=== PATIENT | male | born 1995 | race Caucasian/White ===

== ENCOUNTER 2019-04-22 14:48 | Emergency (ER) | payer BC, SELFPAY ==
[~2019-04-22] VITALS: Ht 185.4 cm; Wt 76.4 kg
--- NOTE | 2019-04-22 15:24 | REP ---
Left knee five views : There is no fracture or dislocation. Mineralization and joint spaces are normal. There are no calcifications or foreign bodies. Impression: Negative left knee . Electronically Signed by Angel Jensen MD 04/22/2019 03:14 P
[2019-04-22 16:43] VITALS: BP 150/74
== END 2019-04-22 16:53 | disposition home or self-care (01) ==
LOC: M ED 14:48
DX: S50.812A Abrasion of left forearm, initial encounter (principal); S83.92XA Sprain of unspecified site of left knee, initial encounter; X58.XXXA Exposure to other specified factors, initial encounter; Y92.9 Unspecified place or not applicable; Y93.9 Activity, unspecified; Y99.9 Unspecified external cause status; Z72.0 Tobacco use; F12.10 Cannabis abuse, uncomplicated; Z88.0 Allergy status to penicillin

== ENCOUNTER 2023-07-09 11:27 | Emergency (ER) | payer SELFPAY ==
[~2023-07-09] VITALS: Ht 185.4 cm; Wt 84.9 kg
[2023-07-09 11:30] VITALS: TEMP 97.9
[2023-07-09 12:42] LABS: BASO # 0.1 10^3/uL (0.0-0.2); BASO % 2.1 % (0.0-1.0); EOS # 0.2 10^3/uL (0.0-0.5); HEMATOCRIT 39.5 % (42.0-52.0); HEMOGLOBIN 13.8 g/dl (13.5-17.5); LYMPH % 29.8 % (24.0-44.0); MEAN CORPUSCULAR HEMOGLOBIN 32.3 pg (27.0-33.0); MEAN CORPUSCULAR HGB CONC 34.9 g/dl (32.0-36.5); MEAN CORPUSCULAR VOLUME 92.5 fl (80.0-96.0); MONO # 1.1 10^3/uL (0.0-0.8); MONO % 16.3 % (2.0-8.0); NEUTROPHILS # 3.2 10^3/uL (1.5-8.5); NEUTROPHILS % 48.2 % (36.0-66.0); RED BLOOD COUNT 4.27 10^6/uL (4.30-6.10); WHITE BLOOD COUNT 6.6 10^3/uL (4.0-10.0)
[2023-07-09 12:43] LABS: PLATELET COUNT, AUTOMATED 40 10^3/uL (150-450)
[2023-07-09 12:52] LABS: INR 1.46; PROTHROMBIN TIME 17.3 SECONDS (12.5-14.5)
[2023-07-09 12:53] LABS: PARTIAL THROMBOPLASTIN TIME 35.2 SECONDS (24.8-34.2)
[2023-07-09 13:12] LABS: CK-MB VALUE MASS 5.6 NG/ML (<3.6)
[2023-07-09 13:13] LABS: LIPASE 98 U/L (12-53)
[2023-07-09 13:13] LABS: RSV AMPLIFICATION NEGATIVE (NEGATIVE)
[2023-07-09 13:14] LABS: THYROID STIMULATING HORMONE 2.682 uIU/ML (0.55-4.78)
[2023-07-09 13:16] LABS: ALBUMIN 2.8 G/DL (3.2-5.2); ALKALINE PHOSPHATASE 310 U/L (46-116); ALT/SGPT 67 U/L (7.0-40); AST/SGOT 312 U/L (<34); BILIRUBIN,DIRECT 1.9 MG/DL (<0.4); BILIRUBIN,TOTAL 2.8 MG/DL (0.3-1.2); BLOOD UREA NITROGEN 6 MG/DL (9-23); CALCIUM LEVEL 7.8 MG/DL (8.5-10.1); CARBON DIOXIDE LEVEL 28 MMOL/L (20-31); CHLORIDE LEVEL 109 MMOL/L (98-107); CREATININE FOR GFR 0.59 MG/DL (0.70-1.30); GLOMERULAR FILTRATION RATE > 60.0 (>60); GLUCOSE, FASTING 110 MG/DL (60-100); POTASSIUM SERUM 3.7 MMOL/L (3.5-5.1); SODIUM LEVEL 146 MMOL/L (136-145); TOTAL PROTEIN 7.8 G/DL (5.7-8.2)
[2023-07-09 13:17] LABS: FREE T4 1.25 NG/DL (0.89-1.76)
[2023-07-09 13:24] LABS: ERYTHROCYTE SEDIMENTATION RATE 72 mm/hr (0-15)
[2023-07-09 13:48] LABS: HEPATITIS B CORE ANTIBODY IGM NEGATIVE (NEGATIVE)
[2023-07-09 13:56] LABS: CPK CREATINE PHOSPHOKINASE 465 U/L (46-171); ETHYL ALCOHOL (ETHANOL) 0.355 % (0.000-0.010); HEPATITIS C VIRUS ABY INDEX > 11.00 INDEX (<0.8)
[2023-07-09 14:06] LABS: AMPHETAMINES LEVEL URINE NEGATIVE (NEGATIVE); BARBITURATES URINE NEGATIVE (NEGATIVE); BENZODIAZEPINES URINE NEGATIVE (NEGATIVE); COCAINE METABOLITE URINE NEGATIVE (NEGATIVE); METHADONE URINE NEGATIVE (NEGATIVE); OPIATES URINE NEGATIVE (NEGATIVE); PHENCYCLIDINE URINE NEGATIVE (NEGATIVE)
[2023-07-09 14:15] LABS: CANNABINOIDS URINE POSITIVE (NEGATIVE)
[2023-07-09] MEDS ORDERED: LASI40TA9 PO (16:13)
[2023-07-09] MEDS ORDERED: SPIR-10 PO (16:13)
[2023-07-09] MEDS ORDERED: THIA100TA PO (16:13)
[2023-07-09] MEDS ORDERED: FUROSEMIDE 40 MG TAB PO ONE (16:15)
[2023-07-09] MEDS ORDERED: THIAMINE 100 MG TAB PO ONE (16:15)
[2023-07-09] MEDS ORDERED: SPIRONOLACTONE 25 MG TAB PO ONE (16:15)
[2023-07-09 16:30] VITALS: BP 129/86; O2SAT 98
[2023-07-12 13:07] LABS: ANTINUCLEAR ANTIBODIES DIRECT Negative (Negative)
== END 2023-07-09 16:53 | disposition home or self-care (01) ==
LOC: M ED 11:27
DX: K70.10 Alcoholic hepatitis without ascites (principal); F10.188 Alcohol abuse with other alcohol-induced disorder; K74.60 Unspecified cirrhosis of liver; F17.210 Nicotine dependence, cigarettes, uncomplicated; Z88.0 Allergy status to penicillin; Z79.899 Other long term (current) drug therapy

== ENCOUNTER 2023-10-08 14:29 | Inpatient (IN) | payer OTHER, SELFPAY ==
[~2023-10-08] VITALS: Ht 185.4 cm; Wt 83.6 kg
[~2023-10-08 14:29] MED LIST: LASI40TA9 PO; SPIR-10 PO; THIA100TA PO
[2023-10-08 15:16] LABS: BASO # 0.1 10^3/uL (0.0-0.2); BASO % 1.1 % (0.0-1.0); EOS # 0.1 10^3/uL (0.0-0.5); EOS % 0.7 % (0.0-3.0); HEMATOCRIT 31.6 % (42.0-52.0); HEMOGLOBIN 11.6 g/dl (13.5-17.5); LYMPH % 22.4 % (24.0-44.0); MEAN CORPUSCULAR HEMOGLOBIN 35.3 pg (27.0-33.0); MEAN CORPUSCULAR HGB CONC 36.7 g/dl (32.0-36.5); MONO # 1.3 10^3/uL (0.0-0.8); MONO % 14.5 % (2.0-8.0); NEUTROPHILS # 5.4 10^3/uL (1.5-8.5); NEUTROPHILS % 60.4 % (36.0-66.0); RED BLOOD COUNT 3.29 10^6/uL (4.30-6.10)
[2023-10-08 15:30] LABS: ETHYL ALCOHOL (ETHANOL) 0.026 % (0.000-0.010); LIPASE 48 U/L (12-53)
[2023-10-08 15:36] LABS: ALBUMIN 2.1 G/DL (3.2-5.2); ALKALINE PHOSPHATASE 211 U/L (46-116); ALT/SGPT 68 U/L (7.0-40); AST/SGOT 263 U/L (<34); BILIRUBIN,DIRECT 8.2 MG/DL (<0.4); BILIRUBIN,TOTAL 15.6 MG/DL (0.3-1.2); BLOOD UREA NITROGEN 6 MG/DL (9-23); CALCIUM LEVEL 8.4 MG/DL (8.5-10.1); CARBON DIOXIDE LEVEL 26 MMOL/L (20-31); CHLORIDE LEVEL 99 MMOL/L (98-107); CREATININE FOR GFR 0.53 MG/DL (0.70-1.30); GLOMERULAR FILTRATION RATE > 60.0 (>60); GLUCOSE, FASTING 96 MG/DL (60-100); MAGNESIUM LEVEL 1.5 MG/DL (1.8-2.4); PHOSPHORUS LEVEL 2.6 MG/DL (2.5-4.9); POTASSIUM SERUM 3.3 MMOL/L (3.5-5.1); SODIUM LEVEL 137 MMOL/L (136-145); TOTAL PROTEIN 8.3 G/DL (5.7-8.2)
[2023-10-08 15:40] LABS: PLATELET COUNT, AUTOMATED 46 10^3/uL (150-450)
[2023-10-08 15:48] LABS: INR 2.58; PROTHROMBIN TIME 26.7 SECONDS (12.5-14.5)
[2023-10-08 15:49] LABS: PARTIAL THROMBOPLASTIN TIME 48.8 SECONDS (24.8-34.2)
[2023-10-08] MEDS ORDERED: ISOVUE-370 76% 100ML VIAL As Ordered ONE (15:54)
[2023-10-08 15:59] LABS: VENOUS BASE EXCESS 0.5 (-2.0-2.0); VENOUS HCO3 24.7 MMOL/L (23.0-27.0); VENOUS O2 SATURATION 86.3 % (60.0-80.0); VENOUS PARTIAL PRESSURE CO2 38.2 mmHg (38.0-50.0); VENOUS PARTIAL PRESSURE O2 50.7 mmHg (30.0-50.0); VENOUS PH 7.429 UNITS (7.330-7.430); VENOUS STANDARD HCO3 24.7 MMOL/L; VENOUS TOTAL CO2 25.9 MMOL/L (24.0-28.0)
[2023-10-08] MEDS ORDERED: cefTRIAXone SOD 2 GM in D5W MINI-BAG PLUS 50 ML IV ONE (18:35)
[2023-10-08 19:39] LABS: SOURCE, BODY FLUID PERITONEAL
[2023-10-08] MEDS ORDERED: HOME MED LIST COMPLETE! XX SCH (19:40)
[2023-10-08 19:41] LABS: APPEARANCE, BODY FLUID HAZY (CLEAR); PERITONEAL FL COLOR AMBER (COLORLESS)
[2023-10-08 19:58] LABS: SOURCE, BODY FLUID ALBUMIN PERITONEAL
[2023-10-08 20:03] LABS: SOURCE, BODY FLUID GLUCOSE PERITONEAL
[2023-10-08 20:05] LABS: SOURCE, BODY FLUID TOT PROTEIN PERITONEAL; TOTAL PROTEIN, BODY FLUID < 2.0 G/DL (NOT ESTABLISHED)
[2023-10-08] MEDS: THIAMINE 100 MG TAB PO SCH (21:02)
[2023-10-08] MEDS: LORazepam 2 MG TAB PO PRN (21:02)
[2023-10-09] VITALS (10 sets, daily range): BP systolic 100–133; BP diastolic 57–81; TEMP 97.8–98.9; O2SAT 90–100
[2023-10-09] MEDS: LORazepam 2 MG TAB PO PRN (00:54)
[2023-10-09] MEDS ORDERED: LORazepam 2 MG/ML 1ML VIAL IV STA (03:36)
[2023-10-09] MEDS ORDERED: ALBUTEROL SULFATE 2.5MG/0.5ML INH NEB SOLN INH PRN (04:40)
[2023-10-09] MEDS ORDERED: LORazepam 2 MG TAB PO PRN (04:40)
[2023-10-09] MEDS ORDERED: methylPREDNISolone 125MG 2ML VIAL IV SCH (05:25)
[2023-10-09 06:44] LABS: HEMATOCRIT 32.3 % (42.0-52.0); HEMOGLOBIN 11.5 g/dl (13.5-17.5); MEAN CORPUSCULAR HEMOGLOBIN 35.1 pg (27.0-33.0); MEAN CORPUSCULAR HGB CONC 35.6 g/dl (32.0-36.5); MEAN CORPUSCULAR VOLUME 98.5 fl (80.0-96.0); RED BLOOD COUNT 3.28 10^6/uL (4.30-6.10); WHITE BLOOD COUNT 8.5 10^3/uL (4.0-10.0)
[2023-10-09 06:52] LABS: PLATELET COUNT, AUTOMATED 40 10^3/uL (150-450)
[2023-10-09 07:16] LABS: ALBUMIN 1.8 G/DL (3.2-5.2); ALKALINE PHOSPHATASE 176 U/L (46-116); ALT/SGPT 65 U/L (7.0-40); AST/SGOT 250 U/L (<34); BILIRUBIN,TOTAL 15.9 MG/DL (0.3-1.2); BLOOD UREA NITROGEN 9 MG/DL (9-23); CALCIUM LEVEL 7.8 MG/DL (8.5-10.1); CARBON DIOXIDE LEVEL 26 MMOL/L (20-31); CHLORIDE LEVEL 98 MMOL/L (98-107); CREATININE FOR GFR 0.56 MG/DL (0.70-1.30); GLOMERULAR FILTRATION RATE > 60.0 (>60); GLUCOSE, FASTING 101 MG/DL (60-100); MAGNESIUM LEVEL 1.6 MG/DL (1.8-2.4); POTASSIUM SERUM 4.7 MMOL/L (3.5-5.1); SODIUM LEVEL 132 MMOL/L (136-145); TOTAL PROTEIN 7.6 G/DL (5.7-8.2)
[2023-10-09] MEDS ORDERED: POTASSIUM PHOSPHATE INJ 20 MMOL in D5W 250 ML IV ONE (08:00)
[2023-10-09 08:18] LABS: INR 3.07; PROTHROMBIN TIME 30.5 SECONDS (12.5-14.5)
[2023-10-09] MEDS: LACTULOSE 20GM/30ML SYRUP UDC PO SCH ×4 (08:55→23:00)
[2023-10-09] MEDS: THIAMINE 100 MG TAB PO SCH ×2 (09:27→21:01)
[2023-10-09] MEDS: FOLIC ACID 1MG TAB PO SCH (09:27)
[2023-10-09] MEDS: MULTIVITAMINS/MINERALS THERAP 1 TAB PO SCH (09:27)
[2023-10-09] MEDS: FUROSEMIDE 20MG/2ML VIAL IV SCH (09:27)
[2023-10-09] MEDS: PANTOPRAZOLE 40MG VIAL IV SCH ×2 (09:27→21:00)
[2023-10-09] MEDS: SPIRONOLACTONE 25 MG TAB PO SCH ×2 (09:27→16:13)
[2023-10-09] MEDS ORDERED: MIDODRINE 5 MG TAB PO PRN (09:55)
[2023-10-09] MEDS ORDERED: OCTREOTIDE ACETATE 100MCG/ML VIAL **IV ADMINISTRATION ONLY IV ONE (10:00)
[2023-10-09] MEDS ORDERED: MIDAZOLAM INJ 2MG/2ML VIAL As Ordered ONE (10:20)
[2023-10-09] MEDS ORDERED: propofoL 200 MG/20 ML VIAL As Ordered ONE ×2 (10:20→11:20)
[2023-10-09] MEDS ORDERED: fentaNYL 100 MCG/2 ML INJECTION As Ordered ONE (10:20)
[2023-10-09] MEDS ORDERED: LIDOCAINE 2% 100MG/5ML SDV (FOR ANES.) As Ordered ONE (10:20)
[2023-10-09] MEDS: OCTREOTIDE ACETATE 1,200 MCG in NS 238.8 ML IV SCH (10:37)
[2023-10-09] MEDS ORDERED: ROCURONIUM BROMIDE 50MG/5ML VIAL As Ordered ONE (10:47)
[2023-10-09] MEDS: MAG SULF 1GM/100ML (MAG RUN) 1 GM in IV 1 EA IV SCH ×2 (15:06→16:13)
[2023-10-09] MEDS: PENTOXIFYLLINE 400MG TAB PO SCH ×2 (16:13→21:01)
[2023-10-09] MEDS: cefTRIAXone SOD 1 GM in D5W MINI-BAG PLUS 50 ML IV SCH (21:00)
[2023-10-09] MEDS: rifAXIMin 550 MG TAB (XIFAXAN) PO SCH (21:00)
[2023-10-10] VITALS (7 sets, daily range): BP systolic 102–146; BP diastolic 53–70; TEMP 97.6–98.4; O2SAT 91–97
[2023-10-10] MEDS: LACTULOSE 20GM/30ML SYRUP UDC PO SCH ×4 (03:00→22:17)
[2023-10-10 07:32] LABS: BASO % 0.1 % (0.0-1.0); HEMATOCRIT 27.2 % (42.0-52.0); HEMOGLOBIN 9.8 g/dl (13.5-17.5); LYMPH # 0.9 10^3/uL (1.5-5.0); LYMPH % 8.4 % (24.0-44.0); MEAN CORPUSCULAR VOLUME 97.1 fl (80.0-96.0); MONO # 1.5 10^3/uL (0.0-0.8); MONO % 14.2 % (2.0-8.0); NEUTROPHILS # 8.1 10^3/uL (1.5-8.5); NEUTROPHILS % 76.2 % (36.0-66.0); WHITE BLOOD COUNT 10.6 10^3/uL (4.0-10.0)
[2023-10-10 07:35] LABS: PLATELET COUNT, AUTOMATED 42 10^3/uL (150-450)
[2023-10-10 07:44] LABS: INR 2.88; PROTHROMBIN TIME 29.1 SECONDS (12.5-14.5)
[2023-10-10 08:10] LABS: ALBUMIN 1.7 G/DL (3.2-5.2); ALKALINE PHOSPHATASE 158 U/L (46-116); ALT/SGPT 48 U/L (7.0-40); AST/SGOT 170 U/L (<34); BILIRUBIN,TOTAL 12.6 MG/DL (0.3-1.2); BLOOD UREA NITROGEN 7 MG/DL (9-23); CALCIUM LEVEL 7.5 MG/DL (8.5-10.1); CARBON DIOXIDE LEVEL 31 MMOL/L (20-31); CHLORIDE LEVEL 98 MMOL/L (98-107); GLOMERULAR FILTRATION RATE > 60.0 (>60); GLUCOSE, FASTING 121 MG/DL (60-100); MAGNESIUM LEVEL 1.7 MG/DL (1.8-2.4); POTASSIUM SERUM 3.3 MMOL/L (3.5-5.1); SODIUM LEVEL 133 MMOL/L (136-145); TOTAL PROTEIN 6.8 G/DL (5.7-8.2)
[2023-10-10] MEDS: PANTOPRAZOLE 40MG VIAL IV SCH ×2 (08:27→21:19)
[2023-10-10] MEDS: rifAXIMin 550 MG TAB (XIFAXAN) PO SCH ×2 (08:28→21:19)
[2023-10-10] MEDS: FOLIC ACID 1MG TAB PO SCH (08:28)
[2023-10-10] MEDS: MULTIVITAMINS/MINERALS THERAP 1 TAB PO SCH (08:28)
[2023-10-10] MEDS: PENTOXIFYLLINE 400MG TAB PO SCH ×3 (08:28→21:18)
[2023-10-10] MEDS: THIAMINE 100 MG TAB PO SCH ×2 (08:28→22:17)
[2023-10-10] MEDS: SPIRONOLACTONE 25 MG TAB PO SCH ×2 (08:46→17:33)
[2023-10-10] MEDS: FUROSEMIDE 20MG/2ML VIAL IV SCH ×2 (08:47→17:33)
[2023-10-10] MEDS: OCTREOTIDE ACETATE 1,200 MCG in NS 238.8 ML IV SCH (09:41)
[2023-10-10] MEDS: MAG SULF 1GM/100ML (MAG RUN) 2 GM in IV 1 EA IV SCH ×2 (09:41→11:24)
[2023-10-10] MEDS ORDERED: POTASSIUM CHLORIDE 10MEQ SR TABLET PO ONE (10:00)
[2023-10-10] MEDS: MIDODRINE 5 MG TAB PO SCH ×2 (11:24→15:35)
[2023-10-10] MEDS: cefTRIAXone SOD 1 GM in D5W MINI-BAG PLUS 50 ML IV SCH (18:19)
[2023-10-11 05:34] VITALS: BP 106/58; TEMP 98.2; O2SAT 93
[2023-10-11] MEDS: LACTULOSE 20GM/30ML SYRUP UDC PO SCH ×3 (06:15→22:00)
[2023-10-11 06:39] LABS: BASO % 0.1 % (0.0-1.0); EOS # 0.1 10^3/uL (0.0-0.5); EOS % 0.5 % (0.0-3.0); HEMATOCRIT 28.8 % (42.0-52.0); HEMOGLOBIN 10.3 g/dl (13.5-17.5); LYMPH # 1.3 10^3/uL (1.5-5.0); LYMPH % 13.3 % (24.0-44.0); MEAN CORPUSCULAR HGB CONC 35.8 g/dl (32.0-36.5); MONO # 1.5 10^3/uL (0.0-0.8); MONO % 14.8 % (2.0-8.0); NEUTROPHILS % 69.5 % (36.0-66.0); RED BLOOD COUNT 2.94 10^6/uL (4.30-6.10); WHITE BLOOD COUNT 10.1 10^3/uL (4.0-10.0)
[2023-10-11 06:52] LABS: PLATELET COUNT, AUTOMATED 44 10^3/uL (150-450)
[2023-10-11 07:00] LABS: INR 3.01; PROTHROMBIN TIME 30.1 SECONDS (12.5-14.5)
[2023-10-11 07:05] LABS: ALBUMIN 1.6 G/DL (3.2-5.2); ALKALINE PHOSPHATASE 160 U/L (46-116); ALT/SGPT 51 U/L (7.0-40); AST/SGOT 176 U/L (<34); BLOOD UREA NITROGEN 5 MG/DL (9-23); CALCIUM LEVEL 7.8 MG/DL (8.5-10.1); CARBON DIOXIDE LEVEL 31 MMOL/L (20-31); CHLORIDE LEVEL 98 MMOL/L (98-107); CREATININE FOR GFR 0.56 MG/DL (0.70-1.30); GLOMERULAR FILTRATION RATE > 60.0 (>60); GLUCOSE, FASTING 84 MG/DL (60-100); POTASSIUM SERUM 3.4 MMOL/L (3.5-5.1); SODIUM LEVEL 133 MMOL/L (136-145); TOTAL PROTEIN 6.7 G/DL (5.7-8.2)
[2023-10-11 08:02] VITALS: BP 113/54; TEMP 98.3; O2SAT 94
[2023-10-11 08:11] LABS: MAGNESIUM LEVEL 1.8 MG/DL (1.8-2.4)
[2023-10-11] MEDS: MIDODRINE 5 MG TAB PO SCH ×3 (08:52→17:00)
[2023-10-11] MEDS: rifAXIMin 550 MG TAB (XIFAXAN) PO SCH ×2 (08:52→20:14)
[2023-10-11] MEDS: PENTOXIFYLLINE 400MG TAB PO SCH ×3 (08:52→20:14)
[2023-10-11] MEDS: OCTREOTIDE ACETATE 1,200 MCG in NS 238.8 ML IV SCH ×2 (08:53→09:08)
[2023-10-11] MEDS: MULTIVITAMINS/MINERALS THERAP 1 TAB PO SCH (08:53)
[2023-10-11] MEDS: FOLIC ACID 1MG TAB PO SCH (08:53)
[2023-10-11] MEDS: PANTOPRAZOLE 40MG VIAL IV SCH ×2 (08:53→20:13)
[2023-10-11] MEDS: THIAMINE 100 MG TAB PO SCH (08:53)
[2023-10-11] MEDS: FUROSEMIDE 20MG/2ML VIAL IV SCH ×2 (08:54→17:00)
[2023-10-11] MEDS ORDERED: POTASSIUM CHLORIDE 10MEQ SR TABLET PO ONE (09:00)
[2023-10-11] MEDS: SPIRONOLACTONE 50 MG TAB PO SCH ×2 (09:08→17:00)
[2023-10-11 11:52] VITALS: BP 122/57; TEMP 98.7; O2SAT 90
[2023-10-11] MEDS: MAGNESIUM OXIDE 400MG TAB (MAG-OX) PO SCH ×2 (13:14→20:14)
[2023-10-11 15:57] VITALS: BP 118/64; TEMP 98; O2SAT 99
[2023-10-11] MEDS: cefTRIAXone SOD 1 GM in D5W MINI-BAG PLUS 50 ML IV SCH (18:51)
[2023-10-11 19:14] VITALS: BP 115/57; TEMP 97.8; O2SAT 95
[2023-10-11 23:42] VITALS: BP 99/55; TEMP 98.8; O2SAT 90
[2023-10-12 03:37] VITALS: BP 108/57; TEMP 98.8; O2SAT 95
[2023-10-12] MEDS: LACTULOSE 20GM/30ML SYRUP UDC PO SCH ×2 (06:00→15:02)
[2023-10-12 06:27] LABS: BASO % 0.4 % (0.0-1.0); EOS # 0.1 10^3/uL (0.0-0.5); EOS % 1.3 % (0.0-3.0); HEMATOCRIT 29.6 % (42.0-52.0); HEMOGLOBIN 10.5 g/dl (13.5-17.5); LYMPH # 1.7 10^3/uL (1.5-5.0); LYMPH % 16.7 % (24.0-44.0); MEAN CORPUSCULAR HEMOGLOBIN 35.1 pg (27.0-33.0); MEAN CORPUSCULAR HGB CONC 35.5 g/dl (32.0-36.5); NEUTROPHILS % 61.3 % (36.0-66.0); RED BLOOD COUNT 2.99 10^6/uL (4.30-6.10); WHITE BLOOD COUNT 9.9 10^3/uL (4.0-10.0)
[2023-10-12 06:34] LABS: INR 3.06; PROTHROMBIN TIME 30.5 SECONDS (12.5-14.5)
[2023-10-12 06:47] LABS: ALBUMIN 1.6 G/DL (3.2-5.2); ALKALINE PHOSPHATASE 153 U/L (46-116); ALT/SGPT 49 U/L (7.0-40); AST/SGOT 145 U/L (<34); BILIRUBIN,TOTAL 11.2 MG/DL (0.3-1.2); BLOOD UREA NITROGEN 6 MG/DL (9-23); CALCIUM LEVEL 7.5 MG/DL (8.5-10.1); CARBON DIOXIDE LEVEL 28 MMOL/L (20-31); CHLORIDE LEVEL 102 MMOL/L (98-107); CREATININE FOR GFR 0.61 MG/DL (0.70-1.30); GLOMERULAR FILTRATION RATE > 60.0 (>60); GLUCOSE, FASTING 75 MG/DL (60-100); MAGNESIUM LEVEL 1.7 MG/DL (1.8-2.4); POTASSIUM SERUM 3.4 MMOL/L (3.5-5.1); SODIUM LEVEL 136 MMOL/L (136-145); TOTAL PROTEIN 6.5 G/DL (5.7-8.2)
[2023-10-12 06:57] LABS: MONO # 1.8 10^3/uL (0.0-0.8)
[2023-10-12 06:58] LABS: PLATELET COUNT, AUTOMATED 44 10^3/uL (150-450)
[2023-10-12] MEDS ORDERED: PENT400T23 PO ×2 (07:18→11:51)
[2023-10-12 07:44] VITALS: BP 93/51; TEMP 97.3; O2SAT 92
[2023-10-12] MEDS ORDERED: POTASSIUM CHLORIDE 10MEQ SR TABLET PO ONE (09:00)
[2023-10-12] MEDS ORDERED: PANTOPRAZOLE 40MG TAB (PROTONIX) PO SCH (09:00)
[2023-10-12] MEDS ORDERED: FUROSEMIDE 40 MG TAB PO SCH (09:00)
[2023-10-12] MEDS: rifAXIMin 550 MG TAB (XIFAXAN) PO SCH (09:10)
[2023-10-12] MEDS: FOLIC ACID 1MG TAB PO SCH (09:11)
[2023-10-12] MEDS: MULTIVITAMINS/MINERALS THERAP 1 TAB PO SCH (09:11)
[2023-10-12] MEDS: PENTOXIFYLLINE 400MG TAB PO SCH (09:11)
[2023-10-12] MEDS: SPIRONOLACTONE 50 MG TAB PO SCH (09:11)
[2023-10-12] MEDS: MAGNESIUM OXIDE 400MG TAB (MAG-OX) PO SCH (09:12)
[2023-10-12] MEDS: MIDODRINE 5 MG TAB PO SCH ×2 (09:12→12:56)
[2023-10-12 10:08] VITALS: BP 117/65
[2023-10-12] MEDS ORDERED: FOLI1TAB11 PO (11:51)
[2023-10-12] MEDS ORDERED: FURO40TA2 PO (11:51)
[2023-10-12] MEDS ORDERED: MAGN400T2 PO (11:51)
[2023-10-12] MEDS ORDERED: MIDO5TA PO (11:51)
[2023-10-12] MEDS ORDERED: POTA-151 PO (11:51)
[2023-10-12] MEDS ORDERED: ALDA50TA2 PO (11:51)
[2023-10-12] MEDS ORDERED: PANT40TA29 PO (11:51)
[2023-10-12] MEDS ORDERED: THIA100T7 PO (11:51)
[2023-10-12] MEDS ORDERED: CIPR500T39 PO (11:51)
[2023-10-12] MEDS ORDERED: LACT10SO3 PO (11:51)
[2023-10-12 12:00] VITALS: BP_SYST 108; BP_SYST 117; BP_DIAS 57; BP_DIAS 65; TEMP 96.6; O2SAT 91
[2023-10-12] MEDS ORDERED: CIPROFLOXACIN 500MG TABLET PO SCH (18:00)
[2023-10-13] MEDS ORDERED: FUROSEMIDE 40 MG TAB PO SCH (09:00)
== END 2023-10-12 16:04 | disposition home or self-care (01) | DRG 264 ==
LOC: EDBD 14:29 → M ED 14:29 → M ED INP 10-09 04:36 → M PCU 10-09 13:22
PROVIDERS: ADMIT Internal Medicine; ATTEND Internal Medicine
PROC: 0W9G3ZX Drainage of Peritoneal Cavity, Percutaneous Approach, Diagnostic (ICD-10-PCS; 2023-10-08)
PROC: 0W3P8ZZ Control Bleeding in Gastrointestinal Tract, Via Natural or Artificial Opening Endoscopic (ICD-10-PCS; 2023-10-09)
PROC: 30233K1 Transfusion of Nonautologous Frozen Plasma into Peripheral Vein, Percutaneous Approach (ICD-10-PCS; principal; 2023-10-09 10:01)
DX: K75.9 Inflammatory liver disease, unspecified (principal); I85.11 Secondary esophageal varices with bleeding; K92.0 Hematemesis; D69.6 Thrombocytopenia, unspecified; K70.11 Alcoholic hepatitis with ascites; K70.31 Alcoholic cirrhosis of liver with ascites; K76.82 Hepatic encephalopathy; F10.20 Alcohol dependence, uncomplicated; K31.89 Other diseases of stomach and duodenum; Z88.0 Allergy status to penicillin; Z20.822 Contact with and (suspected) exposure to COVID-19

== ENCOUNTER 2023-11-29 09:03 | Inpatient (IN) | payer MEDICAID, OTHER ==
[2023-11-29] VITALS (77 sets, daily range): BP systolic 69–141; BP diastolic 21–55; TEMP 91.9–99; O2SAT 84–96
[~2023-11-29] VITALS: Ht 185.4 cm; Wt 100.7 kg
[~2023-11-29 09:03] MED LIST changes: +ALDA50TA2 PO; +CIPR500T39 PO; +FOLI1TAB11 PO; +FOLIC ACID 1MG TAB PO SCH; +FURO40TA2 PO; +LACT10SO3 PO; +LACTULOSE 20GM/30ML SYRUP UDC PO SCH; +MAGN400T2 PO; +MIDO5TA PO; +MULTIVITAMINS/MINERALS THERAP 1 TAB PO SCH; +PANT40TA29 PO; +PENT400T23 PO; +POTA-151 PO; +THIA100T7 PO; +THIAMINE 100 MG TAB PO SCH
[2023-11-29] MEDS ORDERED: NS 1,000 ML IV ONE (09:10)
[2023-11-29] MEDS ORDERED: LORazepam 2 MG TAB PO PRN ×2 (09:10→12:05)
[2023-11-29] MEDS ORDERED: DEXTROSE 50% 50ML SYRINGE As Ordered ONE (09:20)
[2023-11-29] MEDS ORDERED: THIAMINE 200MG 2ML VIAL IV ONE (09:25)
[2023-11-29] MEDS ORDERED: cefTRIAXone SOD 2 GM in D5W MINI-BAG PLUS 50 ML IV ONE (09:25)
[2023-11-29] MEDS ORDERED: DEXTROSE 50% 50ML SYRINGE IV STA (09:30)
[2023-11-29 09:45] LABS: ABG BASE EXCESS -10.4 (-2.0-2.0); ABG HCO3 15.4 MMOL/L (22.0-26.0); ABG O2 SATURATION 87.4 % (95.0-99.0); ABG PARTIAL PRESSURE CO2 33.3 mmHg (35.0-45.0); ABG PARTIAL PRESSURE O2 66.5 mmHg (75.0-100.0); ABG STANDARD HCO3 15.9 MMOL/L. (22.0-26.0); ABG TOTAL CO2 16.4 MMOL/L (22.0-29.0); ABG pH (ARTERIAL) 7.282 UNITS (7.350-7.450)
[2023-11-29 10:08] LABS: BASO % 0.3 % (0.0-1.0); EOS % 0.3 % (0.0-3.0); HEMATOCRIT 22.1 % (42.0-52.0); HEMOGLOBIN 8.2 g/dl (13.5-17.5); LYMPH # 0.5 10^3/uL (1.5-5.0); LYMPH % 4.9 % (24.0-44.0); MEAN CORPUSCULAR HEMOGLOBIN 34.9 pg (27.0-33.0); MONO # 1.5 10^3/uL (0.0-0.8); MONO % 13.4 % (2.0-8.0); NEUTROPHILS # 8.3 10^3/uL (1.5-8.5); NEUTROPHILS % 76.4 % (36.0-66.0); RED BLOOD COUNT 2.35 10^6/uL (4.30-6.10); WHITE BLOOD COUNT 10.9 10^3/uL (4.0-10.0)
[2023-11-29 10:10] LABS: INR 3.99; PROTHROMBIN TIME 37.4 SECONDS (12.5-14.5)
[2023-11-29 10:14] LABS: PLATELET COUNT, AUTOMATED 48 10^3/uL (150-450)
[2023-11-29 10:15] LABS: MEAN CORPUSCULAR HGB CONC 37.1 g/dl (32.0-36.5)
[2023-11-29 10:26] LABS: CPK CREATINE PHOSPHOKINASE 237 U/L (46-171)
[2023-11-29 10:28] LABS: THYROID STIMULATING HORMONE 0.895 uIU/ML (0.55-4.78)
[2023-11-29] MEDS ORDERED: MED REC IN PROGRESS XX SCH (10:30)
[2023-11-29] MEDS ORDERED: NS 2,810 ML in IV 1 EA IV ONE (10:30)
[2023-11-29] MEDS ORDERED: NOREPINEPHRINE 4MG IN D5 250ML 4 MG in IV 1 EA IV SCH ×2 (10:35)
[2023-11-29 10:49] LABS: ALBUMIN 1.6 G/DL (3.2-5.2); ALKALINE PHOSPHATASE 192 U/L (46-116); ALT/SGPT 94 U/L (7.0-40); AST/SGOT 370 U/L (<34); BILIRUBIN,DIRECT 7.3 MG/DL (<0.4); BLOOD UREA NITROGEN 19 MG/DL (9-23); CALCIUM LEVEL 7.4 MG/DL (8.5-10.1); CARBON DIOXIDE LEVEL 18 MMOL/L (20-31); CHLORIDE LEVEL 82 MMOL/L (98-107); CREATININE FOR GFR 1.69 MG/DL (0.70-1.30); GLOMERULAR FILTRATION RATE 52.1 (>60); GLUCOSE, FASTING 47 MG/DL (60-100); POTASSIUM SERUM 4.8 MMOL/L (3.5-5.1); SALICYLATE LEVEL < 3.0 MG/DL (<30); SODIUM LEVEL 116 MMOL/L (136-145); TOTAL PROTEIN 6.1 G/DL (5.7-8.2)
[2023-11-29] MEDS ORDERED: PANTOPRAZOLE 40MG VIAL IV ONE (10:55)
[2023-11-29 10:57] LABS: ETHYL ALCOHOL (ETHANOL) 0.357 % (0.000-0.010)
[2023-11-29] MEDS ORDERED: ALBUTEROL SULFATE 2.5MG/0.5ML INH NEB SOLN NEB PRN (11:35)
[2023-11-29 11:55] LABS: ACETONE/KETONE 0.12 MMOL/L (0.02-0.27)
[2023-11-29 12:10] LABS: LIPASE 44 U/L (12-53)
[2023-11-29 12:11] LABS: MAGNESIUM LEVEL 2.2 MG/DL (1.8-2.4); PHOSPHORUS LEVEL 5.9 MG/DL (2.5-4.9)
[2023-11-29] MEDS ORDERED: fentaNYL 100 MCG/2 ML INJECTION IV PRN (13:55)
[2023-11-29] MEDS ORDERED: fentaNYL CITRATE/NaCl 1,000 MCG in IV 1 EA IV SCH (13:55)
[2023-11-29] MEDS ORDERED: MIDAZOLAM INJ 2MG/2ML VIAL IV PRN (13:55)
[2023-11-29] MEDS ORDERED: SUCCINYLCHOLINE INJ 200MG/10ML VIAL IV STA (14:08)
[2023-11-29] MEDS ORDERED: ETOMIDATE INJ 20MG/10ML VIAL IV STA (14:08)
[2023-11-29] MEDS: MIDAZOLAM 100MG/100ML-0.9%NACL 100 MG in IV 1 EA IV SCH (14:26)
[2023-11-29] MEDS: SODIUM BICARBONATE 150 MEQ in D5W 1,000 ML IV SCH (14:32)
[2023-11-29] MEDS: MEROPENEM INJ 1 GM in IV 1 EA IV SCH ×2 (14:32→23:04)
[2023-11-29] MEDS: HYDROCORTISONE 100MG/2ML VIAL IV SCH ×2 (14:41→20:58)
[2023-11-29] MEDS ORDERED: fentaNYL CITRATE 1,000 MCG in NS 80 ML IV SCH (14:44)
[2023-11-29] MEDS: fentaNYL CITRATE 1,000 MCG in NS 80 ML IV SCH (15:03)
[2023-11-29 15:36] LABS: ABG BASE EXCESS -14.5 (-2.0-2.0); ABG HCO3 11.5 MMOL/L (22.0-26.0); ABG O2 SATURATION 98.3 % (95.0-99.0); ABG PARTIAL PRESSURE CO2 27.6 mmHg (35.0-45.0); ABG PARTIAL PRESSURE O2 123.9 mmHg (75.0-100.0); ABG STANDARD HCO3 13.1 MMOL/L. (22.0-26.0); ABG TOTAL CO2 12.4 MMOL/L (22.0-29.0)
[2023-11-29] MEDS ORDERED: MED REC CURRENTLY UNOBTAINABLE XX SCH (15:40)
[2023-11-29 15:44] LABS: ABG pH (ARTERIAL) 7.238 UNITS (7.350-7.450)
[2023-11-29] MEDS ORDERED: VANCOMYCIN HCL 1,000 MG, VIAL MATE ADAPTER 1 EACH in D5W 250 ML IV ONE (16:00)
[2023-11-29] MEDS ORDERED: LACT20EL PO (16:12)
[2023-11-29] MEDS ORDERED: FOLI1TAB11 PO (16:13)
[2023-11-29] MEDS ORDERED: PENT400T22 PO (16:16)
[2023-11-29] MEDS ORDERED: SPIR50TA4 PO (16:16)
[2023-11-29] MEDS ORDERED: PANT40TA29 PO (16:17)
[2023-11-29] MEDS ORDERED: MIDO5TA PO (16:24)
[2023-11-29] MEDS ORDERED: FURO40TA2 PO (16:25)
[2023-11-29] MEDS ORDERED: THIA100T7 PO (16:26)
[2023-11-29] MEDS ORDERED: MAGN400T2 PO (16:27)
[2023-11-29] MEDS ORDERED: MED REC COMMENT (16:28)
[2023-11-29] MEDS ORDERED: HOME MED LIST COMPLETE! XX SCH (16:30)
[2023-11-29] MEDS: NOREPINEPHRINE 4MG IN D5 250ML 4 MG in IV 1 EA IV SCH ×8 (16:33→23:15)
[2023-11-29] MEDS: VASOPRESSIN INJ 20 UNITS in NS 499 ML IV SCH (16:34)
[2023-11-29 16:40] LABS: AMPHETAMINES LEVEL URINE NEGATIVE (NEGATIVE); BARBITURATES URINE NEGATIVE (NEGATIVE); BENZODIAZEPINES URINE NEGATIVE (NEGATIVE); COCAINE METABOLITE URINE NEGATIVE (NEGATIVE); METHADONE URINE NEGATIVE (NEGATIVE); OPIATES URINE NEGATIVE (NEGATIVE); PHENCYCLIDINE URINE NEGATIVE (NEGATIVE)
[2023-11-29 16:42] LABS: CANNABINOIDS URINE POSITIVE (NEGATIVE)
[2023-11-29] MEDS ORDERED: HEPARIN 1,000UNITS/ML 10ML VIAL (FOR RADIOLOGY & DIALYSIS ONLY) IV PRN (16:55)
[2023-11-29] MEDS: MIDODRINE 5 MG TAB PO SCH (17:07)
[2023-11-29 17:23] LABS: ALBUMIN 1.6 G/DL (3.2-5.2); BILIRUBIN,TOTAL 10.2 MG/DL (0.3-1.2); CALCIUM LEVEL 6.5 MG/DL (8.5-10.1); CREATININE FOR GFR 1.6 MG/DL (0.70-1.30); GLOMERULAR FILTRATION RATE 55.5 (>60); MAGNESIUM LEVEL 2.1 MG/DL (1.8-2.4); POTASSIUM SERUM 4.5 MMOL/L (3.5-5.1); TOTAL PROTEIN 5.5 G/DL (5.7-8.2)
[2023-11-29] MEDS: PHENYLEPHRINE HCL INJ 50 MG in D5W 495 ML IV SCH ×2 (17:44→23:55)
[2023-11-29 17:47] LABS: HEMOGLOBIN 7.3 g/dl (13.5-17.5); MEAN CORPUSCULAR HEMOGLOBIN 34.4 pg (27.0-33.0); MEAN CORPUSCULAR HGB CONC 36.3 g/dl (32.0-36.5); MEAN CORPUSCULAR VOLUME 94.8 fl (80.0-96.0); RED BLOOD COUNT 2.12 10^6/uL (4.30-6.10); WHITE BLOOD COUNT 11.3 10^3/uL (4.0-10.0)
[2023-11-29 17:50] LABS: HEMATOCRIT 20.1 % (42.0-52.0); PLATELET COUNT, AUTOMATED 38 10^3/uL (150-450)
[2023-11-29] MEDS ORDERED: PENTOXIFYLLINE 400MG TAB PO SCH (18:00)
[2023-11-29] MEDS ORDERED: SODIUM CHLORIDE 3% 500 ML IV STA (18:15)
[2023-11-29] MEDS ORDERED: OCTREOTIDE ACETATE 100MCG/ML VIAL **IV ADMINISTRATION ONLY IV ONE (18:30)
[2023-11-29] MEDS: OCTREOTIDE ACETATE 1,200 MCG in NS 238.8 ML IV SCH (18:49)
[2023-11-29 20:11] LABS: MEAN CORPUSCULAR HGB CONC 35.8 g/dl (32.0-36.5); WHITE BLOOD COUNT 10.1 10^3/uL (4.0-10.0)
[2023-11-29 20:18] LABS: HEMOGLOBIN 6.8 g/dl (13.5-17.5); PLATELET COUNT, AUTOMATED 43 10^3/uL (150-450)
[2023-11-29] MEDS: PANTOPRAZOLE 40MG VIAL IV SCH (20:58)
[2023-11-29 21:00] LABS: ALBUMIN 1.4 G/DL (3.2-5.2); BILIRUBIN,TOTAL 9.5 MG/DL (0.3-1.2); CALCIUM LEVEL 5.9 MG/DL (8.5-10.1); CREATININE FOR GFR 1.76 MG/DL (0.70-1.30); GLOMERULAR FILTRATION RATE 49.7 (>60); PHOSPHORUS LEVEL 6.9 MG/DL (2.5-4.9); POTASSIUM SERUM 4.9 MMOL/L (3.5-5.1); TOTAL PROTEIN 4.5 G/DL (5.7-8.2)
[2023-11-29] MEDS: VANCOMYCIN HCL 1,000 MG, VIAL MATE ADAPTER 1 EACH in D5W 250 ML IV SCH (21:27)
[2023-11-30] VITALS (89 sets, daily range): BP systolic 79–158; BP diastolic 16–59; TEMP 95.7–99.3; O2SAT 85–98
[2023-11-30] MEDS: PHENYLEPHRINE HCL INJ 50 MG in D5W 495 ML IV SCH ×5 (00:10→15:41)
[2023-11-30] MEDS: VASOPRESSIN INJ 20 UNITS in NS 499 ML IV SCH ×3 (00:11→15:25)
[2023-11-30] MEDS: NOREPINEPHRINE 4MG IN D5 250ML 4 MG in IV 1 EA IV SCH ×16 (01:28→16:33)
[2023-11-30] MEDS: HYDROCORTISONE 100MG/2ML VIAL IV SCH ×3 (02:33→15:30)
[2023-11-30 04:37] LABS: MEAN CORPUSCULAR HEMOGLOBIN 33.3 pg (27.0-33.0); MEAN CORPUSCULAR HGB CONC 36.1 g/dl (32.0-36.5); MEAN CORPUSCULAR VOLUME 92.3 fl (80.0-96.0); RED BLOOD COUNT 1.95 10^6/uL (4.30-6.10)
[2023-11-30 04:44] LABS: HEMOGLOBIN 6.5 g/dl (13.5-17.5); PLATELET COUNT, AUTOMATED 39 10^3/uL (150-450)
[2023-11-30 05:40] LABS: ALBUMIN 1.5 G/DL (3.2-5.2); BILIRUBIN,TOTAL 8.9 MG/DL (0.3-1.2); CALCIUM LEVEL 5.6 MG/DL (8.5-10.1); CREATININE FOR GFR 2.14 MG/DL (0.70-1.30); GLOMERULAR FILTRATION RATE 39.7 (>60); TOTAL PROTEIN 3.9 G/DL (5.7-8.2)
[2023-11-30] MEDS: SODIUM BICARBONATE 150 MEQ in D5W 1,000 ML IV SCH (05:46)
[2023-11-30] MEDS: MEROPENEM INJ 1 GM in IV 1 EA IV SCH ×2 (06:02→15:31)
[2023-11-30] MEDS ORDERED: NS 1,000 ML IV ONE (06:15)
[2023-11-30] MEDS ORDERED: SODIUM CHLORIDE 3% 100 ML IV STA (06:17)
[2023-11-30 06:48] LABS: ABG BASE EXCESS -9.7 (-2.0-2.0); ABG HCO3 15.9 MMOL/L (22.0-26.0); ABG O2 SATURATION 98.1 % (95.0-99.0); ABG PARTIAL PRESSURE CO2 33.5 mmHg (35.0-45.0); ABG PARTIAL PRESSURE O2 122.4 mmHg (75.0-100.0); ABG STANDARD HCO3 16.5 MMOL/L. (22.0-26.0); ABG pH (ARTERIAL) 7.295 UNITS (7.350-7.450)
[2023-11-30] MEDS: fentaNYL CITRATE 1,000 MCG in NS 80 ML IV SCH (06:50)
[2023-11-30] MEDS ORDERED: CALCIUM GLUCONATE 1,000 MG in D5W MINI-BAG PLUS 100 ML IV ONE (08:00)
[2023-11-30] MEDS: MIDODRINE 5 MG TAB PO SCH ×2 (08:00→08:18)
[2023-11-30] MEDS ORDERED: cefTRIAXone SOD 2 GM in D5W MINI-BAG PLUS 50 ML IV SCH (09:00)
[2023-11-30] MEDS ORDERED: MULTIVITAMINS/MINERALS THERAP 1 TAB PO SCH (09:00)
[2023-11-30] MEDS ORDERED: MAG SULF 1GM/100ML (MAG RUN) 1 GM in IV 1 EA IV ONE (09:00)
[2023-11-30] MEDS: PANTOPRAZOLE 40MG VIAL IV SCH (09:12)
[2023-11-30] MEDS: MIDAZOLAM 100MG/100ML-0.9%NACL 100 MG in IV 1 EA IV SCH (10:04)
[2023-11-30] MEDS: VANCOMYCIN HCL 1,000 MG, VIAL MATE ADAPTER 1 EACH in D5W 250 ML IV SCH (10:04)
[2023-11-30] MEDS ORDERED: HEPARIN 1,000UNITS/ML 10ML VIAL (FOR RADIOLOGY & DIALYSIS ONLY) IV PRN (10:15)
[2023-11-30] MEDS ORDERED: SODIUM CHLORIDE 0.9% INJ 10 ML SYR IV PRN (10:15)
[2023-11-30] MEDS ORDERED: INSULIN LISPRO (NovoLOG) PER UNIT SC SCH (12:00)
[2023-11-30] MEDS ORDERED: GLUCOSE 4GM CHEW TABLET PO PRN (12:05)
[2023-11-30] MEDS ORDERED: DEXTROSE 50% 50ML SYRINGE IV PRN (12:05)
[2023-11-30] MEDS ORDERED: GLUCAGON INJ 1MG VIAL SC PRN (12:05)
[2023-11-30] MEDS ORDERED: NOREPINEPHRINE 4MG IN D5 250ML 4 MG in IV 1 EA IV SCH ×2 (13:59)
[2023-11-30] MEDS ORDERED: PHENYLEPHRINE HCL INJ 50 MG in D5W 495 ML IV SCH (13:59)
[2023-11-30 15:12] LABS: IONIZED CALCIUM 3.3 MG/DL (4.5-5.3)
[2023-11-30 15:21] LABS: ABG BASE EXCESS -6.8 (-2.0-2.0); ABG HCO3 19.1 MMOL/L (22.0-26.0); ABG O2 SATURATION 97.4 % (95.0-99.0); ABG PARTIAL PRESSURE CO2 39.8 mmHg (35.0-45.0); ABG PARTIAL PRESSURE O2 106.4 mmHg (75.0-100.0); ABG STANDARD HCO3 18.8 MMOL/L. (22.0-26.0); ABG TOTAL CO2 20.3 MMOL/L (22.0-29.0); ABG pH (ARTERIAL) 7.298 UNITS (7.350-7.450)
[2023-11-30 15:22] LABS: MEAN CORPUSCULAR HEMOGLOBIN 30.5 pg (27.0-33.0); MEAN CORPUSCULAR HGB CONC 35.9 g/dl (32.0-36.5); RED BLOOD COUNT 1.67 10^6/uL (4.30-6.10); WHITE BLOOD COUNT 10.2 10^3/uL (4.0-10.0)
[2023-11-30 15:25] LABS: HEMATOCRIT 14.2 % (42.0-52.0); PLATELET COUNT, AUTOMATED 54 10^3/uL (150-450)
[2023-11-30 15:27] LABS: HEMOGLOBIN 5.1 g/dl (13.5-17.5)
[2023-11-30] MEDS: CALCIUM GLUCONATE 1,000 MG in D5W MINI-BAG PLUS 100 ML IV SCH ×2 (15:31→16:43)
[2023-11-30 15:50] LABS: CALCIUM LEVEL 5.4 MG/DL (8.5-10.1); CREATININE FOR GFR 1.92 MG/DL (0.70-1.30); GLOMERULAR FILTRATION RATE 44.9 (>60); MAGNESIUM LEVEL 1.6 MG/DL (1.8-2.4); PHOSPHORUS LEVEL 5.5 MG/DL (2.5-4.9); POTASSIUM SERUM 4.3 MMOL/L (3.5-5.1)
[2023-11-30 16:31] LABS: PROTHROMBIN TIME 117.9 SECONDS (12.5-14.5)
[2023-11-30 16:47] LABS: INR 17.76
[2023-11-30 16:48] LABS: PARTIAL THROMBOPLASTIN TIME > 240.0 SECONDS (24.8-34.2)
[2023-11-30] MEDS: OCTREOTIDE ACETATE 1,200 MCG in NS 238.8 ML IV SCH (17:25)
[2023-11-30] MEDS ORDERED: **NOTE PATIENT COMMENT** MISC XX SCH (21:00)
== END 2023-11-30 20:16 | disposition expired | DRG 720 ==
LOC: EDBD 09:03 → M ED 09:03 → M ED INP 11:31 → ENRESERV 12:17 → M ICU 13:00
PROVIDERS: ADMIT Internal Medicine Pulmonary Disease; ATTEND Internal Medicine Pulmonary Disease
PROC: 0BH17EZ Insertion of Endotracheal Airway into Trachea, Via Natural or Artificial Opening (ICD-10-PCS; principal; 2023-11-29)
PROC: 5A1945Z Respiratory Ventilation, 24-96 Consecutive Hours (ICD-10-PCS; 2023-11-29)
PROC: 02HV33Z Insertion of Infusion Device into Superior Vena Cava, Percutaneous Approach (ICD-10-PCS; 2023-11-29)
PROC: 04HL33Z Insertion of Infusion Device into Left Femoral Artery, Percutaneous Approach (ICD-10-PCS; 2023-11-29)
PROC: 30233N1 Transfusion of Nonautologous Red Blood Cells into Peripheral Vein, Percutaneous Approach (ICD-10-PCS; 2023-11-29)
PROC: 30233J1 Transfusion of Nonautologous Serum Albumin into Peripheral Vein, Percutaneous Approach (ICD-10-PCS; 2023-11-29)
PROC: 30233R1 Transfusion of Nonautologous Platelets into Peripheral Vein, Percutaneous Approach (ICD-10-PCS; 2023-11-29)
PROC: 30233K1 Transfusion of Nonautologous Frozen Plasma into Peripheral Vein, Percutaneous Approach (ICD-10-PCS; 2023-11-29)
PROC: 5A1D90Z Performance of Urinary Filtration, Continuous, Greater than 18 hours Per Day (ICD-10-PCS; 2023-11-29)
PROC: B246ZZZ Ultrasonography of Right and Left Heart (ICD-10-PCS; 2023-11-30)
DX: A41.9 Sepsis, unspecified organism (principal); J96.01 Acute respiratory failure with hypoxia; D65 Disseminated intravascular coagulation [defibrination syndrome]; K76.7 Hepatorenal syndrome; K72.00 Acute and subacute hepatic failure without coma; G93.41 Metabolic encephalopathy; I85.10 Secondary esophageal varices without bleeding; R57.1 Hypovolemic shock; E46 Unspecified protein-calorie malnutrition; E87.20 Acidosis, unspecified; I95.9 Hypotension, unspecified; N17.0 Acute kidney failure with tubular necrosis; R65.21 Severe sepsis with septic shock; Z51.5 Encounter for palliative care; Z66 Do not resuscitate; E87.1 Hypo-osmolality and hyponatremia; D62 Acute posthemorrhagic anemia; E27.40 Unspecified adrenocortical insufficiency; K92.2 Gastrointestinal hemorrhage, unspecified; K70.10 Alcoholic hepatitis without ascites; K70.31 Alcoholic cirrhosis of liver with ascites; K76.82 Hepatic encephalopathy; J98.11 Atelectasis; F10.129 Alcohol abuse with intoxication, unspecified; F17.210 Nicotine dependence, cigarettes, uncomplicated; Z88.0 Allergy status to penicillin; Z79.899 Other long term (current) drug therapy